=== PATIENT | male | born 1980 | race Caucasian/White ===

== ENCOUNTER 2016-12-16 16:11 | Emergency (ER) | payer MEDICAID, OTHER ==
--- NOTE | 2016-12-16 16:33 | EDM.PDOC ---
ED HPI Trauma - General Chief Complaint: Upper Extremity Injury/Pain Stated Complaint: DISLOCATED FINGER [id number] Time Seen by Provider: 12/16/16 16:31 Source: Reports: Patient - History of Present Illness INITIAL COMMENTS - FREE TEXT/NARRATIVE: patient injured his right hand about 1-1/2 weeks ago. He punched a wall. Since that time complains of distal fifth metacarpal pain. No bruising but he does have swelling. 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 Occurred When: last week Occurred Where: home Severity: moderate Pain/Injury Location: Reports: upper extremity, right Allergies/ADRs: Allergies No Known Allergies Allergy (Verified 09/16/13 18:29) Home Medications: Ambulatory Orders . [No Known Home Meds] 12/16/16 [Confirmed 12/16/16] Past Medical History - Past Health History Medical/Surgical History: Denies Medical/Surgical History Social & Family History - Recreational Drug Use Recreational Drug Use: No Review of Systems - Review of Systems Review Of Systems: ROS reveals no pertinent complaints other than HPI. Trauma Exam - Physical Exam Exam: See Below Exam Limited By: No limitations General Appearance: Reports: alert, WD/WN, no apparent distress Extremities: Reports: other (mild swelling and tenderness to the distal fifth right metacarpal. Mild pain to the fifth MCP. No pain to the base of the fifth metacarpal. Normal finger flexion and extension. Crit 30 with a blood alcohol or or) Course - Vital Signs Last Recorded V/S: Last Vital Signs Temp 98 F 12/16/16 16:20 Pulse 93 12/16/16 16:20 Resp 16 12/16/16 16:20 BP 137/104 H 12/16/16 16:20 Pulse Ox 97 12/16/16 16:20 - Orders/Labs/Meds Orders: Active Orders 24 hr Category Date Time Status Hand Comp Min 3V Rt [CR] Urgent Exams 12/16/16 16:32 Taken Departure - Departure Time of Disposition: 16:52 Disposition: Home, Self-Care 01 Condition: good Clinical Impression: Fracture of metacarpal bone Qualifiers: Encounter type: initial encounter Metacarpal bone: fifth Fracture type: closed Metacarpal location: neck Fracture alignment: nondisplaced Laterality: right Qualified Code(s): S62.366A - Nondisplaced fracture of neck of fifth metacarpal bone, right hand, initial encounter for closed fracture Instructions: Radial Head Fracture, [id number], Finger Fracture, [id number] , Metacarpal Fracture, [id number] Forms: ED Department Discharge Additional Instructions: Wear brace as needed. This may take up to 6 weeks. Followup with regular provider as needed. If increasing pain or other problems have your hand reevaluated. call or return to the ER if any problems questions or concerns. Use ibuprofen 3 tablets 3 times a day as needed. May also use tylenol up to 4 times a day. - My Orders Last 24 Hours: My Active Orders 12/16/16 16:32 Hand Comp Min 3V Rt [CR] Urgent - Assessment/Plan Last 24 Hours: My Active Orders 12/16/16 16:32 Hand Comp Min 3V Rt [CR] Urgent
[2016-12-16 16:35] VITALS: BP 137/104
== END 2016-12-16 17:00 | disposition home or self-care (01) ==
LOC: DL.ED 16:11
DX: S62.366A Nondisplaced fracture of neck of fifth metacarpal bone, right hand, initial encounter for closed fracture (principal); W22.8XXA Striking against or struck by other objects, initial encounter; Y92.009 Unspecified place in unspecified non-institutional (private) residence as the place of occurrence of the external cause
CPT/HCPCS: 73130-RT; 99283

== ENCOUNTER 2017-01-23 21:13 | Emergency (ER) | payer MEDICAID ==
[2017-01-23 21:26] VITALS: BP 136/89
[2017-01-23] MEDS ORDERED: Ibuprofen 600 MG Tab PO ONE (21:53)
--- NOTE | 2017-01-23 22:05 | EDM.PDOC ---
ED HPI GENERAL MEDICAL PROBLEM - General Chief Complaint: Upper Extremity Injury/Pain Stated Complaint: HAND PAIN, [id number] Time Seen by Provider: 01/23/17 21:54 Source of Information: Reports: Patient History Limitations: Reports: No Limitations - History of Present Illness INITIAL COMMENTS - FREE TEXT/NARRATIVE: hit hand against wall [employer], pain right hand greatest at base 5th finger Right Hand Pain Score (Numeric/FACES): 8 - Related Data Allergies Allergy/AdvReac Type Severity Reaction Status Date / Time No Known Allergies Allergy Verified 01/23/17 21:26 Home Meds: Home Meds . [No Known Home Meds] 12/16/16 [History] Past Medical History - Past Health History Medical/Surgical History: Denies Medical/Surgical History HEENT History: Reports: None Cardiovascular History: Reports: None Respiratory History: Reports: None Genitourinary History: Reports: None Musculoskeletal History: Reports: None Neurological History: Reports: None, Concussion Psychiatric History: Reports: None Endocrine/Metabolic History: Reports: None Immunologic History: Reports: None Oncologic (Cancer) History: Reports: None Dermatologic History: Reports: None - Past Surgical History GI Surgical History: Reports: Appendectomy Social & Family History - Family History Family Medical History: Noncontributory - Tobacco Use Smoking Status *Q: Current Every Day Smoker Years of Tobacco use: 1 Packs/Tins Daily: 0.5 - Caffeine Use Caffeine Use: Reports: Soda Other Caffeine Use: 10 cans/day - Recreational Drug Use Recreational Drug Use: No Review of Systems - Review of Systems Review Of Systems: ROS reveals no pertinent complaints other than HPI. Trauma Exam - Physical Exam Exam: See Below Exam Limited By: No Limitations General Appearance: Reports: Alert, No Apparent Distress Head: Reports: Atraumatic, Normocephalic Nose: Reports: Normal Inspection Throat/Mouth: Reports: Normal Inspection, Normal Voice Neck: Reports: Non-Tender Cardiovascular: Reports: Normal Peripheral Pulses, Regular Rate, Rhythm Extremities: Normal Range of Motion, Pain with Movement, Tenderness, Other ( swelling distal 5th metacarpal no open area.) Course - Vital Signs Last Recorded V/S: Last Vital Signs Temp 97.7 F 01/23/17 21:21 Pulse 96 01/23/17 21:21 Resp 14 01/23/17 21:21 BP 136/89 01/23/17 21:21 Pulse Ox 98 01/23/17 21:21 - Orders/Labs/Meds Meds: Medications Discontinued Medications Generic Name Dose Route Start Last Admin Trade Name Janak PRN Reason Stop Dose Admin Ibuprofen 600 mg 01/23/17 21:53 01/23/17 21:59 Motrin PO 01/23/17 21:54 600 mg ONETIME ONE Administration - Radiology Interpretation Free Text/Narrative:: no acute fracture 5th metacarpal, healing old fracture. Departure - Departure Time of Disposition: 22:08 Disposition: Home, Self-Care 01 Condition: good Clinical Impression: Contusion of hand, right Qualifiers: Encounter type: initial encounter Qualified Code(s): S60.221A - Contusion of right hand, initial encounter - Discharge Information Instructions: Contusion Referrals: Jovanna Lan MD [Primary Care Provider] - Forms: ED Department Discharge Additional Instructions: ice, elevation to right hand splint for comfort follow up as needed
== END 2017-01-23 22:20 | disposition home or self-care (01) ==
LOC: DL.ED 21:13
DX: S60.221A Contusion of right hand, initial encounter (principal); F17.210 Nicotine dependence, cigarettes, uncomplicated; Z90.49 Acquired absence of other specified parts of digestive tract; W22.01XA Walked into wall, initial encounter
CPT/HCPCS: 73120; 99283; A9270

== ENCOUNTER 2019-04-28 11:55 | Emergency (ER) | payer MEDICAID, OTHER ==
[2019-04-28] MEDS ORDERED: traMADol 50 MG Tab PO ONE ×2 (11:56→12:12)
[2019-04-28 12:02] VITALS: BP 147/91
[2019-04-28] MEDS ORDERED: Ibuprofen 800 MG Tab PO ONE (12:07)
[2019-04-28] MEDS ORDERED: Lidocaine 5% Oint 35.44 GM Tube TOP ONE (12:08)
[2019-04-28] MEDS ORDERED: traMADol 50 MG Tab ONE (12:18)
--- NOTE | 2019-04-28 12:33 | EDM.PDOC ---
Scribed by Anusha Sow 04/28/19 1222 for Kelvin Blancas MD ED HPI GENERAL MEDICAL PROBLEM - General Chief Complaint: Lower Extremity Injury/Pain Stated Complaint: TREE FELL ONTO PT RIGHT LEG Time Seen by Provider: 04/28/19 11:57 Source of Information: Reports: Patient, RN, RN Notes Reviewed History Limitations: Reports: No Limitations - History of Present Illness INITIAL COMMENTS - FREE TEXT/NARRATIVE: Patient presents to ER with complaint of right leg pain. Last week he was cutting down a tree and it fell on his right leg. He has a lot of pain and swelling in the leg. He has been taking Tylenol without relief. Onset: Sudden Duration: Day(s): (3-4), Improving Location: Reports: Lower Extremity, Right Quality: Reports: Ache Severity: Moderate Improves with: Reports: None Worsens with: Reports: None Associated Symptoms: Reports: No Other Symptoms Right Leg Pain Score (Numeric/FACES): 6 - Related Data Allergies Allergy/AdvReac Type Severity Reaction Status Date / Time No Known Allergies Allergy Verified 01/23/17 21:26 Home Meds: Home Meds . [No Known Home Meds] 12/16/16 [History] Past Medical History - Past Health History Medical/Surgical History: Denies Medical/Surgical History HEENT History: Reports: None Cardiovascular History: Reports: None Respiratory History: Reports: None Genitourinary History: Reports: None Musculoskeletal History: Reports: None Neurological History: Reports: None, Concussion Psychiatric History: Reports: None Endocrine/Metabolic History: Reports: None Immunologic History: Reports: None Oncologic (Cancer) History: Reports: None Dermatologic History: Reports: None - Past Surgical History GI Surgical History: Reports: Appendectomy Social & Family History - Family History Family Medical History: Noncontributory - Caffeine Use Caffeine Use: Reports: Soda Other Caffeine Use: 10 cans/day - Living Situation & Occupation Occupation: Employed Review of Systems - Review of Systems Review Of Systems: ROS reveals no pertinent complaints other than HPI. ED EXAM, GENERAL - Physical Exam Exam: See Below Exam Limited By: No Limitations General Appearance: Alert, WD/WN, No Apparent Distress Nose: Normal Inspection Throat/Mouth: Normal Inspection Head: Atraumatic, Normocephalic Neck: Normal Inspection, Full Range of Motion Respiratory/Chest: No Respiratory Distress Cardiovascular: Normal Peripheral Pulses, Regular Rate, Rhythm Extremities: Normal Range of Motion, Other (Large resolving contusion to right anterior and medical leg from distal thigh to ankle, with a tender hematoma at the middle 1/3 of the ant/medial lower leg, the skin is intact.). No: Joint Swelling, Sony's Sign Neurological: Alert, Oriented, CN II-XII Intact, Normal Gait Psychiatric: Normal Mood Course - Vital Signs Last Recorded V/S: Last Vital Signs Temp 97.3 F 04/28/19 12:01 Pulse 83 04/28/19 12:01 Resp 18 04/28/19 12:01 BP 147/91 H 04/28/19 12:01 Pulse Ox 100 04/28/19 12:01 - Orders/Labs/Meds Meds: Medications Discontinued Medications Generic Name Dose Route Start Last Admin Trade Name Janak PRN Reason Stop Dose Admin Ibuprofen 800 mg 04/28/19 12:07 04/28/19 12:21 Motrin PO 04/28/19 12:08 800 mg ONETIME ONE Administration Lidocaine HCl 15 gm 04/28/19 12:08 04/28/19 12:21 Lidocaine 5% TOP 04/28/19 12:09 1 applic ONETIME ONE Administration Tramadol HCl 50 mg 04/28/19 12:12 04/28/19 12:21 Ultram PO 04/28/19 12:13 50 mg ONETIME ONE Administration Tramadol HCl Confirm 04/28/19 12:18 Ultram Administered 04/28/19 12:19 Dose 200 mg .ROUTE .STK-MED ONE Departure - Departure Time of Disposition: 12:16 Disposition: Home, Self-Care 01 Condition: Good Clinical Impression: Traumatic hematoma of right lower leg Qualifiers: Encounter type: initial encounter Qualified Code(s): S80.11XA - Contusion of right lower leg, initial encounter Contusion of right lower extremity Qualifiers: Encounter type: initial encounter Qualified Code(s): S80.11XA - Contusion of right lower leg, initial encounter - Discharge Information *PRESCRIPTION DRUG MONITORING PROGRAM REVIEWED*: No *COPY OF PRESCRIPTION DRUG MONITORING REPORT IN PATIENT AGATA: No Instructions: Contusion, [id number], Hematoma, [id number] Forms: ED Department Discharge Additional Instructions: Rx: Naprosyn 500mg *Take with food. Rx: Tramadol 50mg *Do not drive or work while under the influence of this medication. Use warm/hot Epsom Salt soaks or wraps alternating with ice packs to right leg. Follow up in clinic in 1 week for recheck if not improving as expected. I have read and agree with the documentation that has been completed regarding this visit. By signing this record, I attest that the documentation was completed in my physical presence and is an accurate record of the encounter.
== END 2019-04-28 12:26 | disposition home or self-care (01) ==
LOC: DL.ED 11:55
DX: S80.11XA Contusion of right lower leg, initial encounter (principal); W20.8XXA Other cause of strike by thrown, projected or falling object, initial encounter
CPT/HCPCS: 99282; A9270